=== PATIENT | male | born 1955 | race Caucasian/White ===

== ENCOUNTER 2024-12-08 05:59 | Inpatient (IN) ==
--- NOTE | 2024-11-03 10:59 | PAT Medication Instructions ---
Medication Instructions Date of Service November 03, 2024 Home Medications aspirin 81 mg tablet,delayed release 81 mg PO QAM atorvastatin 40 mg tablet 40 mg PO PM clopidogrel 75 mg tablet 75 mg PO QPM lisinopril 5 mg tablet 5 mg PO QAM MEDICATION INSTRUCTIONS: ASK your prescriber and surgeon aspirin 81 mg tablet,delayed release 81 mg PO QAM clopidogrel 75 mg tablet 75 mg PO QPM DO NOT take the morning of surgery lisinopril 5 mg tablet 5 mg PO QAM Take evening before surgery atorvastatin 40 mg tablet 40 mg PO PM Other Notes Remember: NOTHING TO EAT OR DRINK AFTER MIDNIGHT If you have any questions please call us at [phone] or [phone] or [phone] or [phone]
--- NOTE | 2024-11-06 13:34 | Anesthesiology Consultation ---
Date of Service November 06, 2024 Assessment & Plan (1) Encounter for pre-operative examination: - Case discussed in detail including abnormal pre-op EKG with Dr. Vasquez who advised patient is acceptable to proceed not requiring additional evaluation. - facial hair: Patient presented to [facility] with closely trimmed facial hair. He states that after discussion with Dr. Holloway he feels it is best to trim it prior to surgery and states he will trim it again before day of surgery. Case discussed in detail with Dr. Zelaya prior to knowing patient was now agreeable to shave, he advised he could be assigned to case. OR and surgeon's office made aware. Chart Review Chart Review: Acceptable Risk for Surgery and Patient seen in Pre Admission Testing Teaching & Discussion Pre-Anesthesia Teaching/Discussion Notes: Instructed NPO after midnight before surgery, except medications with 15 cc of water. Medication instructions provided according to the [facility] guidelines. History Surgery Operation Date: 12/09/24 10:20 Proposed Procedures p Right Transcarotid Artery Revascularization - Ruddy Holloway MD Height/Weight Height: 5 ft 9 in Weight: 93.9 kg Allergies Allergy/AdvReac Type Severity Reaction Status Date / Time No Known Allergies Allergy Verified 11/03/24 09:07 Medications Home Medications Medication Instructions Recorded Confirmed Last Taken aspirin 81 mg tablet,delayed 81 mg PO QAM 11/03/24 11/03/24 Unknown release atorvastatin 40 mg tablet 40 mg PO PM 11/03/24 11/03/24 Unknown clopidogrel 75 mg tablet 75 mg PO QPM 11/03/24 11/03/24 Unknown lisinopril 5 mg tablet 5 mg PO QAM 11/03/24 11/03/24 Unknown Past Medical History Medical History (Updated 11/06/24 @ 13:38 by Emily Kaplan PA-C) Carotid stenosis, right History of transesophageal echocardiography (AMALIA) 2016>while hospitalized in [place] 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 Exercise / Class Metabolic Activity II 4-5 Yardwork/Stairs/Walk up hill (denies chest discomfort or shortness of breath with one flight of stairs) Past Family History Family History Other No family history of adverse response to anesthesia Past Surgical History Surgical History H/O elbow surgery right History of cataract surgery right/left History of colonoscopy History of ERCP History of surgery on arm right>to treat tendonititis History of tooth extraction Past Anesthesia History No Hx of Anesthesia Complications and No Family Hx of Anesthesia Complications History of PONV No Hx of PONV and No Hx of Motion Sickness Social History Smoking Status: Former smoker Do You Dip or Chew Tobacco: No Smoking End Date: 2015 Hx Alcohol Use: Yes Alcohol type: beer alcohol intake frequency: a few times a week substance use type: does not use Review of Systems Patient denies chest pain, shortness of breath, dyspnea on exertion, snoring, witnessed apneas, reflux, fever, chills, cough, wheezing, or palpitations. Physical Exam Vital Signs Vitals BP 132/84 P 90 TEMP 98.2 SP02 96% on RA RESP 18 Physical Patient resting comfortably in chair in no acute distress, alert and oriented, responding appropriately throughout visit Full cervical extension range of motion without pain TMD 3.5 finger breadths Mallampati Score 2 Dentition: several chipped teeth, denies loose teeth, caps/crowns, implants or bridges Lungs: normal respiratory effort. Good air movement, clear throughout to auscultation, no adventitious breath sounds Cardiac: regular rate and rhythm, no murmurs noted Lab Results Anesthesia Preop Results Results Anesthesia Widget: WBC 8.73 K/ul (4.8-10.8) 11/06/24 Hgb 14.3 g/dl (14.0-18.0) 11/06/24 Hct 41.6 % (42.0-52.0) L 11/06/24 Plt 319 K/uL (130-400) 11/06/24 Na 138 mmol/L (136-145) 11/06/24 K 4.8 mmol/L (3.5-5.1) 11/06/24 Cl 104 mmol/L (98-107) 11/06/24 CO2 28 mmol/L (21-32) 11/06/24 BUN 17 mg/dl (6-23) 11/06/24 Creat 1.42 mg/dl (0.6-1.4) H 11/06/24 Glucose Level 91 mg/dl (70-99(Fasting)) 11/06/24 PT 10.0 Seconds (9.0-12.0) 11/06/24 PTT 26 Seconds (21-31) 11/06/24 INR 0.9 (0.9-1.1) 11/06/24 Blood Type A Positive 11/06/24 Antibody Screen NEGATIVE 11/06/24 Testing Electrocardiogram Date: 11/06/24 NSR, rate 83 bpm Inferior infarct, age undetermined Chest X-Ray Date: 11/06/24 No acute chest disease.
[2024-12-08] MEDS ORDERED: Nursing to Pharmacy Communication SCH (07:15)
[2024-12-08] MEDS: LR 15ML/HR IV SCH (07:30)
[2024-12-08] MEDS ORDERED: PROPOFOL IV EMULSION 10 MG/ML 20 ML VIAL IV ONE (07:31)
[2024-12-08] MEDS ORDERED: fentaNYL citrate PF 100 MCG/2 ML VIAL ONE ×2 (07:33→09:14)
[2024-12-08] MEDS ORDERED: MIDAZOLAM HCL 1 MG/ML 2ML VIAL ONE (07:34)
[2024-12-08] MEDS ORDERED: HEPARIN SOD (PORCINE) 1000 UNIT/ML ONE (07:36)
[2024-12-08] MEDS ORDERED: CISATRACURIUM BESYLATE IV SOLN 2 MG/ML 10 ML VIAL IV ONE (07:37)
--- NOTE | 2024-12-08 08:06 | History & Physical Report ---
Date of Service December 08, 2024 Assessment & Plan (1) Carotid stenosis, right: Plan: Patient for a right tcar. I have discussed the risks options and benefits of the procedure with the patient. The patient understands the risks options and benefits and agrees to t he procedure. History of Present Illness Chief Complaint: right carotid stenosis Primary Care Provider: Castillo Duckworth I had the pleasure of seeing Chandana today for evaluation of his carotid disease. As you know he is a 69-year-old gentleman who was found to have a carotid bruit and underwent ultrasound showing a severe right internal carotid artery stenosis. There also showed a moderate stenosis of the left internal carotid artery. He does have a history of TIA years ago involving the right side of his body. He had total recovery from that. He denies any claudication of the lower extremities. He was a smoker until he had his TIA follow-up approximately 8 years ago. Allergies Allergy/AdvReac Type Severity Reaction Status Date / Time No Known Allergies Allergy Verified 12/08/24 06:16 Home Medications Medication Instructions Recorded Confirmed Type aspirin 81 mg tablet,delayed 81 mg PO QAM 11/03/24 12/08/24 History release atorvastatin 40 mg tablet 40 mg PO PM 11/03/24 12/08/24 History clopidogrel 75 mg tablet 75 mg PO QPM 11/03/24 12/08/24 History lisinopril 5 mg tablet 5 mg PO QAM 11/03/24 12/08/24 History Past Med/Surg History Problem List Medical History History of transesophageal echocardiography (AMALIA) 2015>while hospitalized in [place] Hx TIA/stroke w/o resid 2016>no residual Carotid stenosis, right Hypertension controlled, stable per pt Hyperlipidemia Surgical History History of surgery on arm right>to treat tendonititis H/O elbow surgery right History of colonoscopy History of ERCP History of tooth extraction History of cataract surgery right/left Family History Other No family history of adverse response to anesthesia Social History Smoking Status: Former smoker Tobacco Type: Cigarettes Smoking End Date: 2015; Second Hand Exposure: No; Do You Dip or Chew Tobacco: No; Hx Alcohol Use: Yes Alcohol type: beer Preferred Language: Lithuanian Sales Attendant Required: No Beliefs That Will Affect Care: None Current Living Situation: Alone Feels Safe at Home: Yes Safety Concerns: Feels Safe At This Time Assistive Devices: Glasses Review of Systems All systems reviewed & are unremarkable except as noted in HPI & below Physical Exam Constitutional: WD/WN, vitals as above Respiratory: normal respiratory effort, lungs clear to auscultation Cardiovascular: RRR, no murmur, no edema Gastrointestinal (Abdomen): normal bowel sounds, soft, nontender, no hepatosplenomegaly Neurologic: CN's II-XI intact bilaterally and moves all extremities Psychiatric: A+Ox3, euthymic affect Results & Data Vital Signs (Past 12 Hours) Vital Signs Temp Pulse Resp BP Pulse Ox O2 Del Method 12/08/24 06:33 36.6 C 84 20 136/80 97 Room Air
[2024-12-08] MEDS: ceFAZolin 2000MG 2,000 MG/15 ML SYR IV ONE (08:50)
[2024-12-08] MEDS ORDERED: GLYCOPYRROLATE 0.2 MG/ML VIAL ONE (09:22)
[2024-12-08] MEDS ORDERED: ePHEDrine sulfate 50 MG/5 ML SYR ONE (09:22)
[2024-12-08] MEDS: ceFAZolin 2,000 MG/15 ML IV PUSH IV ONE (09:23)
[2024-12-08] MEDS ORDERED: PHENYLEPHRINE 100MCG/ML 5ML SYR ONE (09:27)
[2024-12-08] MEDS: VISIPAQUE IV ONE (09:34)
[2024-12-08] MEDS: ceFAZolin 330 MG/ML 1 GM VIAL ONE (09:35)
[2024-12-08] MEDS: THROMBIN FOR SOLN 20000 UNIT KIT ONE (09:41)
[2024-12-08] MEDS: GELATIN SPONGE SZ 100 ONE (09:41)
[2024-12-08] MEDS: SURGICEL ABSORB HEMOSTAT 2IN X 14IN TOP ONE (09:42)
[2024-12-08] MEDS ORDERED: PROTAMINE SULFATE 10 MG/ML 5 ML VIAL IV ONE (09:47)
--- NOTE | 2024-12-08 09:53 | Procedure Note ---
Angiogram Post Procedure Fluoroscopy Time (minutes): 3 Radiation (mGy): 31 Contrast: 9 Post Operative Report Pre & Post Diagnosis Operation Date: 12/08/24 08:00 Pre-Op Diagnosis: Stenosis of right carotid artery I identified the patient and participated in the time-out.: Yes Procedure Operation Date: 12/08/24 08:00 Actual Procedures p Right Transcarotid Artery Revascularization, Ultrasound Left Common Femoral Vein(Right) - Ruddy Holloway MD Surgeon Ruddy Holloway MD Structural Fitter Opal,PAC Estimated Blood Loss 20 Findings Consistent with Post-Op Diagnosis Specimens none Anesthesia Type General Complications none Disposition Accompanied Patient To Recovery: No Disposition: Recovery Room Indications This is a 69-year-old male who was found to have a right carotid bruit. Ultrasound CTA confirmed. 90% narrowing of his common carotid artery just before the bifurcation. Endarterectomy versus TCAR were discussed. He elected to go ahead with TCAR procedure. I have discussed the risks options and benefits of the procedure with the patient. The patient understands the risks options and benefits and agrees to the procedure. Description of Procedure The patient was taken to the operating room and placed in supine position. After general anesthesia was accomplished the groins and right side of the neck and chest were prepped and draped in a sterile manner. Timeout was performed and the patient was identified. A transverse incision was made just above the clavicle between the heads of the sternocleidomastoid. This is carried down to where the common carotid artery was identified. It was isolated. It was slung with umbilical tape. Next the U stitch was placed in the common carotid artery with a 5-0 Prolene suture. Patient was given 9000 heparin at that time. Ultrasound was then used to localize the left common femoral vein. The vein was patent and compressed easily. Under ultrasound guidance the left common femoral vein was punctured and the venous sheath was inserted. This was aspirated and flushed with heparinized saline. ACT at that time was 279. Using micropuncture technique the common carotid artery was punctured using a tunneling technique. The micro sheath was inserted to 3 cm. Injection was then done showing the bifu rcation. There was a significant lesion seen at the midportion and extending to the distal end of the common carotid artery. We then inserted the J-wire and left it short of the lesion. The micro sheath was removed and the TCAR sheath was inserted. Once it was in place it was sutured to the chest wall and the puncture site. We then flushed the tubing appropriately. The venous return to was clamped onto the TCAR sheath. It was flushed through and then attached to the venous inflow sheath in the left groin. Sheath was checked for flow. The saline cleared nicely. The common carotid artery was then clamped. Flow reversal was instituted.The flow reversal was again checked for flow and found to have good flow after clamping. We inserted a 6 x 25 balloon backloaded on the wire. The wire was passed through the lesion into the petrous portion of the internal carotid. The 6 balloon was then advanced to the lesion. Lesion was then predilated with a 6 mm balloon. Balloon was removed. We then inserted the 8 x30 stent. This was deployed across the lesion without difficulty. The catheter was removed. Appeared to be still a slight amount of narrowing at the midportion of the stent. We then inserted a 6 x 25 balloon and redilated this area. Widely patent stent was then noted on fluoroscopy. The carotid was allowed to go 2 minutes with flow reversal. Completion angiogram was done at that time which showed a widely patent carotid stent. At that point the common carotid artery was unclamped. The venous return tubing was clamped and removed from the TCAR sheath. The blood was allowed to flow back into the venous system. The TCAR sheath was then removed and the 5-0 Prolene suture securely tied. The patient was given 25 mg of protamine. Hemostasis was noted of the puncture site. An ACT was then drawn. The ACT was 134. The sheath was pulled from the groin and pressure was applied. Wound was irrigated with saline solution. Adequate hemostasis was obtained of the wound. Once this was noted the wound was closed in usual fashion using a 3-0 Vicryl suture for the subcutaneous layer and a 4-0 subcuticular Vicryl suture for the skin edges. Dermabond was used for dressing. The patient left the operation room in satisfactory condition and tolerated the procedure well. All needle and sponge counts were correct at the end of the procedure. Lea Higuera Pac assisted due to lack of resident availability and was necessary for positioning, draping, retraction, wound closure deep layers, subcutaneous tissue, and skin closure and was necessary for assisting with the case. I attest to the content of the Intraoperative Record and any orders documented therein. Any exceptions are noted below.
[2024-12-08] MEDS: BUPIVACAINE/EPINEPHRINE 0.5% MPF 1:200,000 30 ML VIAL ONE (09:55)
[2024-12-08] MEDS ORDERED: LABETALOL HCL IV 5 MG/ML 20ML IV PRN (10:21)
[2024-12-08] MEDS ORDERED: FLUMAZENIL 0.1 MG/1 ML 10 ML VIAL IV PRN (10:21)
[2024-12-08] MEDS ORDERED: ePHEDrine sulfate 50 MG/ML AMP IV PRN (10:21)
[2024-12-08] MEDS ORDERED: HYDROmorphone INJ 1 MG/ML SYRINGE IV PRN (10:21)
[2024-12-08] MEDS ORDERED: ONDANSETRON INJ 2 MG/ML 2 ML VIAL IV PRN (10:21)
[2024-12-08] MEDS ORDERED: NALOXONE HCL 0.4 MG/1 ML VIAL/CARP IV PRN (10:21)
[2024-12-08] MEDS ORDERED: ATROPINE SULFATE 0.1 MG/ML 10ML SYR IV PRN (10:21)
[2024-12-08] MEDS ORDERED: PROMETHAZINE HCL 6.25 MG in SODIUM CHLORIDE 0.9% 50 ML IV PRN (10:21)
[2024-12-08] MEDS ORDERED: fentaNYL citrate PF 100 MCG/2 ML VIAL IV PRN (10:21)
[2024-12-08] MEDS ORDERED: Concentrate Phenylephrine IV Infusion ONE (10:31)
[2024-12-08] MEDS: [UNRECOGNIZED DRUG - OTHER] IV PRN (10:49)
[2024-12-08] MEDS: STANDARD IV PRN (10:49)
--- NOTE | 2024-12-08 11:10 | Anesthesiology Progress Note ---
Date of Service December 08, 2024 Anesthesia Post Procedure Vital Signs Vital Signs: Temp Pulse Pulse Resp BP BP Pulse Ox 12/08/24 11:05 66 15 124/74 95 12/08/24 10:55 36.5 C 85 12 97/40 L 94 12/08/24 10:45 86 11 L 98/39 L 95 12/08/24 10:35 102 H 15 105/43 L 96 12/08/24 10:25 102 H 16 101/42 L 95 12/08/24 10:15 106 H 16 101/40 L 98 12/08/24 10:08 36.2 C L 109 H 18 121/48 L 97 12/08/24 06:33 36.6 C 84 20 136/80 97 O2 Del Method O2 Flow Rate 12/08/24 11:05 Room Air 12/08/24 10:55 Room Air 12/08/24 10:45 Room Air 12/08/24 10:35 Room Air 12/08/24 10:25 Room Air 12/08/24 10:15 Oxymask 6 12/08/24 10:08 Oxymask 6 12/08/24 06:33 Room Air Transfer of Care Handoff Completed per policy Notes Mental Status: alert / awake / arousable Patient Amnestic to Procedure: Yes Nausea / Vomiting: adequately controlled Pain: adequately controlled Airway Patency, RR, SpO2: stable & adequate BP & HR: stable & adequate Hydration State: stable & adequate Anesthetic Complications: no major complications apparent Notes: neurologically intact
[2024-12-08] MEDS ORDERED: oxyCODONE/ACETAMINOPHEN 5mg/325mg TAB PO PRN (12:02)
[2024-12-08] MEDS ORDERED: PHENYLEPHRINE/NSS 25 MG/250 ML BAG IV PRN (12:02)
[2024-12-08] MEDS ORDERED: STAT IV Infusion **Titration per Protocol STA (12:02)
[2024-12-08] MEDS: SODIUM CHLORIDE 0.9% 1,000 ML IV SCH (12:24)
--- NOTE | 2024-12-08 15:26 | Critical Care Consultation ---
Date of Consultation December 08, 2024 Assessment & Plan (1) History of transcarotid artery revascularization (TCAR): R internal carotid artery - 12/08/[address] Holloway (2) Hypotension: (3) Tachycardia: (4) Carotid artery stenosis: (5) Hyperlipidemia: chronic, (6) History of cigarette smokinpack-year history, has not smoked since TIA scare in 2016 (7) Hypertension: chronic, on lisinopril 5mg qAM Plan Reason for critical care consultation: postop day 0 s/p Right transcarotid artery revascularization (R TCAR) procedure, postop hypotension requiring phenylephrine Neuro - intact, unremarkable at this time, continue neuro checks q4 - encourage out of bed with assistance 3x daily Cardiovascular - periods of hypotension post- R TCAR procedure with concurrent tachycardia likely reflex - MAP currently 70s-80s with systolic 110s-120s and diastolic mainly 50s-70s, heart rate currently 80s-90s - currently on phenylephrine drip, continue to monitor closely for sustained MAP<60, in which case norepinephrine would be reasonable Respiratory - unremarkable at this time, currently satting mid-upper 90s on room air - encouraged to use incentive spirometer q2h GI - unremarkable at this time, appetite intact and tolerating solid meals without issue - CMP ordered in AM labs RENAL/LYTES - unremarkable at this time; pt is +~1.4L net fluids mostly via IVF, no significant edema - continue to monitor I/O closely - using bedside urinal at this time, encouraged to be out of bed with assistance 3x daily ENDO - unremarkable at this time, POC glucose 102 at 4:16pm, 12/08/24 - CMP in AM 12/09/24 HEME - no signs of significant bleeding at this time - CBC ordered in AM labs ID - unremarkable as this time; watching for signs and symptoms of infection - receiving IV ancef prophylactically LINES/IV ACCESS - L radial arterial line; L forearm IV access DVT PROPHYLAXIS - was given IV heparin for AM procedure; will try to get out of bed to use bathroom this evening; SCDs prn ordered in case patient does not get out of bed DISPO - ICU Supervising Physician Co-Signing Physician Notes Dr. Chen was resident physician during care of patient. I separately evaluated patient for elam portions of the history and the exam. I was present during the critical portion of medical decision making, and I discussed the case with the resident. I generally agree with the findings and plan. Wean phenylephrine as tolerated History of Present Illness Reason for Consultation: postprocedural hypotension requiring vasopressor support Attending Physician: Ruddy Holloway MD History of Present Illness Chandana is a 69yo male with history of b/l carotid stenosis postop day 0 s/p R TCAR procedure (previously 90% stenosis CESAR), moderate LICA stenosis, history of TIA in 2016, HTN, and hyperlipidemia. States he obtained a CESAR ultrasound with Dr. Holloway because of a CESAR bruit that was heard on a family practice (at the [place]) annual physical in Jul 2024. Denies having had any pain, dizziness, fainting, lightheadedness, headache, or neck pain before or after the finding. Patient notes he met with Dr. Holloway for a consultation in Oct 2024 and had to get an EKG and blood work before the actual procedure. States the TCAR procedure was rescheduled 4-5 times before he finally had it done this morning. Endorses he smoked cigarettes for 40 years with an average of about 1.5 packs per day = 60pack-year smoking history. Notes he quit smoking cigarettes in 2016 after his "mini stroke" scare, has not has the urge or interest to smoke cigarettes since then. Endorses alcohol use of 4-5 beers per week on average for the past 8-10 years. Denies rehab for alcohol or any alcohol-related incidents. Notes his home BP is typically 117-135 systolic and around 70 diastolic, so he endorses his current low BP readings are a bit abnormal. However, he denies any particular symptoms of lightheadedness, dizziness, nausea/vomiting, headache, neck pain, vision changes including double vision or blurry vision. Additionally denies any SOB, chest pain, abdominal pain. Endorses his appetite is good, was able to eat lunch without issue and is hungry for dinner. Notes he has good urine output and has been using his bedside urinal, last BM was this morning (12/08/24) with no concerns. Endorses understanding that he is in the ICU in case he needs vasopressor support in addition to his current phenylephrine drip. Allergies Allergy/AdvReac Type Severity Reaction Status Date / Time No Known Allergies Allergy Verified 12/08/24 06:16 Home Medications Medication Instructions Recorded Confirmed Type aspirin 81 mg tablet,delayed 81 mg PO QAM 11/03/24 12/08/24 History release atorvastatin 40 mg tablet 40 mg PO PM 11/03/24 12/08/24 History clopidogrel 75 mg tablet 75 mg PO QPM 11/03/24 12/08/24 History lisinopril 5 mg tablet 5 mg PO QAM 11/03/24 12/08/24 History oxycodone-acetaminophen 5 mg-325 1 tab PO Q6H PRN pain #10 tabs 12/09/24 Rx mg tablet (Percocet) Patient History Medical History History of transesophageal echocardiography (AMALIA) 2015>while hospitalized in [place] Hx TIA/stroke w/o resid 2015>no residual Carotid stenosis, right Hypertension controlled, stable per pt Hyperlipidemia Surgical History History of surgery on arm right>to treat tendonititis H/O elbow surgery right History of colonoscopy History of ERCP History of tooth extraction History of cataract surgery right/left Family History Other No family history of adverse response to anesthesia Social History Smoking Status: Former smoker Tobacco Type: Cigarettes Smoking End Date: 2015; Second Hand Exposure: No; Do You Dip or Chew Tobacco: No; Hx Alcohol Use: Yes Alcohol type: beer Preferred Language: Central African Educational Fundraising Director Required: No Beliefs That Will Affect Care: None Current Living Situation: Alone Feels Safe at Home: Yes Safety Concerns: Feels Safe At This Time Assistive Devices: Glasses Review of Systems Review of Systems: per HPI Physical Exam Physical Exam: Constitutional: A&Ox3, not in acute distress. Head: NC/AT Eyes: EOM intact, anicteric sclerae, PERRL b/l Neck: R inferior aspect- 5-6cm linear incision superior to R clavicle with 2-3cm area of ecchymosis extending primarily inferiorly from the medial/anterior half of incision - mild tenderness to light palpation of incision site and with moderate palpation of surrounding skin - appears to be healing well with normal scabbing with slightly raised edges, no active bleeding or purulence, no significant swelling or erythema Oropharynx: non-erythematous, no significant oral mucosal swelling, no sores or bleeding observed Cardiovascular: RRR, normal s1/s2, no murmurs/rubs/gallops - 2+ radial pulses b/l, 2+ carotid pulse s b/l, 1+ posterior tibial pulses b/l, 1+ dorsalis pedis pulses b/l Respiratory: clear to auscultation b/l, no wheezes/rales/rhonchi GI/Abdomen: +BS, abdomen mildly tense but nontender to palpation, slight bluish discoloration around inferior aspect of abdomen which is additionally nontender to palpation MSK: 5/5 strength in all extremities, no clubbing or edema noted. Slight pallor in b/l UE from mid hands to fingertips - arterial line in place in L radial art renny, IV line in place L distal ventral forearm Skin: b/l hands and feet slightly cooler to touch than more proximal areas of extremities, otherwise skin findings as noted above Neuro: no facial droop, speech intact, moves extremities on command, CN II-XII grossly intact Psych: good eye contact, feels "good", mood-affect congruence Results & Data Results & Data Vital Signs (Past 12 Hours) Vital Signs Temp Pulse Pulse Pulse Resp BP BP 12/08/24 15:00 81 24 12/08/24 14:36 99 H 15 12/08/24 14:06 116 H 20 12/08/24 14:00 89/58 L 12/08/24 13:57 108 H 16 12/08/24 13:42 92 H 19 12/08/24 13:12 128 H 19 12/08/24 13:01 90/61 L 12/08/24 12:45 72 13 12/08/24 12:15 77 18 12/08/24 12:09 12/08/24 12:06 82 16 12/08/24 12:00 36.5 C 12/08/24 12:00 86 14 115/55 L 12/08/24 11:30 76 16 12/08/24 11:15 67 16 122/77 12/08/24 11:05 66 15 124/74 12/08/24 10:55 36.5 C 85 12 97/40 L 12/08/24 10:45 86 11 L 98/39 L 12/08/24 10:35 102 H 15 105/43 L 12/08/24 10:25 102 H 16 101/42 L 12/08/24 10:15 106 H 16 101/40 L 12/08/24 10:08 36.2 C L 109 H 18 121/48 L 12/08/24 06:33 36.6 C 84 20 BP Pulse Ox O2 Del Method O2 Flow Rate 12/08/24 15:00 96 12/08/24 14:36 96 12/08/24 14:06 94 12/08/24 14:00 12/08/24 13:57 99 12/08/24 13:42 98 12/08/24 13:12 92 12/08/24 13:01 12/08/24 12:45 95 12/08/24 12:15 93 12/08/24 12:09 Room Air 12/08/24 12:06 95 12/08/24 12:00 12/08/24 12:00 94 Room Air 12/08/24 11:30 131/74 96 Room Air 12/08/24 11:15 95 Room Air 12/08/24 11:05 95 Room Air 12/08/24 10:55 94 Room Air 12/08/24 10:45 95 Room Air 12/08/24 10:35 96 Room Air 12/08/24 10:25 95 Room Air 12/08/24 10:15 98 Oxymask 6 12/08/24 10:08 97 Oxymask 6 12/08/24 06:33 136/80 97 Room Air Resident Activity Tracking Resident Involvement: Resident Care Provided Care Provided: Adult Hospital Medicine (2) Hypotension Hypotension type: postprocedural hypotension Qualified Code(s): I95.81 - Postprocedural hypotension (4) Carotid artery stenosis Laterality: bilateral Qualified Code(s): I65.23 - Occlusion and stenosis of bilateral carotid arteries (5) Hyperlipidemia Hyperlipidemia type: unspecified Qualified Code(s): E78.5 - Hyperlipidemia, unspecified (7) Hypertension Hypertension type: unspecified Qualified Code(s): I10 - Essential (primary) hypertension
[2024-12-08] MEDS: ceFAZolin 2000MG 2,000 MG/15 ML SYR IV SCH (16:17)
[2024-12-08] MEDS: CLOPIDOGREL BISULFATE 75 MG TAB PO SCH (20:19)
[2024-12-08] MEDS: ATORVASTATIN 40 MG TAB PO SCH (20:19)
[2024-12-09 04:50] LABS: Hematocrit (blood only) 31.9 % (42.0-52.0); Mean Corpuscular Hemoglobin 28.6 pg (25.0-34.0); Mean Corpuscular Hgb Conc 34.5 g/dL (32.0-36.0); Mean Corpuscular Volume 83.1 fL (80.0-100.0); Mean Platelet Volume 10.4 fL (9.4-12.4); Platelet Count 184 K/uL (130-400); RDW Coefficient of Variation 13.7 % (11.5-14.5); RDW Standard Deviation 41.2 fL (36.4-46.3); Red Blood Count 3.84 M/uL (4.70-6.10)
[2024-12-09 05:06] VITALS: RESP 18
[2024-12-09 05:06] LABS: Albumin Globulin Ratio 1.5 (0.9-2); Albumin Level 3.4 gm/dl (3.4-5.0); BUN Creatinine Ratio 11.6 (10-20); Bilirubin,Total 0.5 mg/dl (0.2-1.0); Calcium 8.7 mg/dl (8.6-10.3); Globulin 2.3 gm/dl (2.5-4.0); Potassium 3.8 mmol/L (3.5-5.1); Total Protein 5.7 gm/dl (6.0-8.3)
[2024-12-09] MEDS: lisinopril 5 MG TAB PO SCH (08:02)
--- NOTE | 2024-12-09 08:02 | Critical Care Progress Note ---
Date of Service December 09, 2024 Assessment & Plan (1) History of transcarotid artery revascularization (TCAR): Plan: R internal carotid artery - 12/08/[address] Holloway (2) Hypotension: (3) Tachycardia: (4) Carotid artery stenosis: (5) Hyperlipidemia: Plan: chronic, (6) History of cigarette smoking: Plan: 60pack-year history, has not smoked since TIA scare in 2016 (7) Hypertension: Plan: chronic, on lisinopril 5mg qAM Plan Reason for critical care consultation: postop day 1 s/p Right transcarotid artery revascularization (R TCAR) procedure, postop hypotension requiring phenylephrine Neuro - intact, unremarkable at this time Cardiovascular - hypotension post- R TCAR procedure with concurrent tachycardia likely reflex has since resolved - MAP currently upper 80s, no longer requires vasopressor support Respiratory - unremarkable at this time, currently satting 100% on room air GI - unremarkable at this time, appetite intact and tolerating solid meals without issue RENAL/LYTES - sodium 135 this am, asymptomatic, otherwise unremarkable at this time - net +1.6L as of this AM, no significant edema - using bedside urinal at this time ENDO - glucose 138 this AM, otherwise unremarkable, followup outpatient as pt is asymptomatic and plans to go home today HEME - no signs of significant bleeding at this time ID - unremarkable as this time; watching for signs and symptoms of infection at surgical wound site - receiving IV ancef prophylactically LINES/IV ACCESS - L radial arterial line; L forearm IV access DVT PROPHYLAXIS - out of bed DISPO - downgrade to tele Admission and Anticipated Discharge Date Admission Date: December 08, 2024 Supervising Physician Co-Signing Physician Notes Dr. Chen was resident physician during care of patient. I separately evaluated patient for elam portions of the history and the exam. I was present during the critical portion of medical decision making, and I discussed the case with the resident. I generally agree with the findings and plan. Discharge per vascular surgery today. Subjective Chandana was seen and evaluated in chair aside bed this AM. Endorses feeling well this AM with no concerns, symptoms, or acute events overnight. Endorses he has been up and out of bed since 5am, additionally had a regular bowel movement. Would like to go home today. Review of Systems Review of Systems: per HPI Physical Exam Physical Exam: Constitutional: A&Ox3, not in acute distress. Head: NC/AT Eyes: EOM intact, anicteric sclerae, PERRL b/l Neck: R inferior aspect- 5-6cm linear incision superior to R clavicle with 1-2cm area of improving ecchymosis (black and blue -> more red today) extending primarily inferiorly from the medial/anterior half of incision - mild tenderness to light palpation of incision site and with moderate palpati on of surrounding skin - appears to be continuing to heal well with normal scabbing with slightly raised edges, no active bleeding or purulence, no significant swelling or erythema Oropharynx: non-erythematous, no significant oral mucosal swelling, no sores or bleeding observed Cardiovascular: RRR, normal s1/s2, no murmurs/rubs/gallops - 2+ radial pulses b/l, 2+ carotid pulse s b/l, 1+ posterior tibial pulses b/l Respiratory: clear to auscultation b/l, no wheezes/rales/rhonchi GI/Abdomen: +BS, abdomen nontender to palpation, slight bluish discoloration around inferior aspect of abdomen which is additionally nontender to palpation MSK: 5/5 strength in all extremities, no clubbing or edema noted. Slight pallor in b/l UE from mid hands to fingertips Skin: b/l hands and feet slightly cooler to touch than more proximal areas of extremities, otherwise skin findings as noted above Neuro: no facial droop, speech intact, moves extremities on command, CN II-XII grossly intact Psych: good eye contact, feels "good", mood-affect congruence Results & Data Results & Data Vital Signs (Past 12 Hours) Vital Signs Temp Pulse Resp BP Pulse Ox 12/09/24 06:00 71 112/71 97 12/09/24 05:03 80 18 100/65 100 12/09/24 04:00 36.5 C 71 19 101/60 99 12/09/24 03:03 65 17 108/61 96 12/09/24 02:03 71 16 113/63 94 12/09/24 01:51 69 17 94 12/09/24 01:00 67 20 93 12/09/24 00:00 70 12/08/24 23:00 36.6 C 84 16 107/61 94 12/08/24 22:03 63 17 107/62 95 12/08/24 22:00 107/62 12/08/24 21:39 72 17 93 12/08/24 21:00 86 17 101/63 94 Resident Activity Tracking Resident Involvement: Resident Care Provided Care Provided: Adult Hospital Medicine (2) Hypotension Hypotension type: postprocedural hypotension Qualified Code(s): I95.81 - Postprocedural hypotension (4) Carotid artery stenosis Laterality: bilateral Qualified Code(s): I65.23 - Occlusion and stenosis of bilateral carotid arteries (5) Hyperlipidemia Hyperlipidemia type: unspecified Qualified Code(s): E78.5 - Hyperlipidemia, unspecified (7) Hypertension Hypertension type: unspecified Qualified Code(s): I10 - Essential (primary) hypertension
[2024-12-09] MEDS: ASPIRIN 81 MG ECTAB PO SCH (08:03)
[2024-12-09 08:31] VITALS: TEMP 98.2
--- NOTE | 2024-12-09 09:18 | Surgery Progress Note ---
Date of Service December 09, 2024 Assessment & Plan (1) Internal carotid artery stent present: Plan: Pt POD #1 after R TCAR. Doing well post op. Hypotension resolved. OK for d/c home today. Admission and Anticipated Discharge Date Admission Date: December 08, 2024 Subjective 69 yo m POD #1 after uncomplicated R TCAR, seen in f/u today. Pt denies any concerns, states incisional pain is minimal. Review of Systems Review of Systems: All systems reviewed & are unremarkable except as noted in HPI & below Physical Exam Constitutional: WD/WN, vitals as above cooperative; not in distress Neck: trachea midline R supraclavicular incision C/D/I, mild local edema/ecchymosis/tenderness Respiratory: normal respiratory effort, lungs clear to auscultation Auscultation: + diminished lung sounds Cardiovascular: Rate/Rhythm: regular rate and regular rhythm Gastrointestinal (Abdomen): Inspection/Auscultation: abdomen normal to inspection and normal bowel sounds Percussion/Palpation: abdomen soft; abdomen nontender Musculoskeletal: no cyanosis or clubbing, extremities motor strength 5/5 Skin: no rashes, warm and dry Neurologic: moves all extremities and awake; no focal motor deficits and not confused Psychiatric: A+Ox3, euthymic affect Results & Data Vital Signs (Past 12 Hours) Vital Signs Temp Pulse Pulse Resp BP BP BP 12/09/24 08:33 36.8 C 76 18 122/77 131/74 12/09/24 08:03 89 18 12/09/24 08:00 114/58 L 12/09/24 08:00 36.8 C 12/09/24 07:00 107/68 12/09/24 07:00 62 18 12/09/24 06:00 71 112/71 12/09/24 05:03 80 18 100/65 12/09/24 04:00 36.5 C 71 19 101/60 12/09/24 03:03 65 17 108/61 12/09/24 02:03 71 16 113/63 12/09/24 01:51 69 17 12/09/24 01:00 67 20 12/09/24 00:00 70 12/08/24 23:00 36.6 C 84 16 107/61 12/08/24 22:03 63 17 107/62 12/08/24 22:00 107/62 12/08/24 21:39 72 17 Pulse Ox O2 Del Method 12/09/24 08:33 98 12/09/24 08:03 98 Room Air 12/09/24 08:00 12/09/24 08:00 12/09/24 07:00 12/09/24 07:00 99 12/09/24 06:00 97 12/09/24 05:03 100 12/09/24 04:00 99 12/09/24 03:03 96 12/09/24 02:03 94 12/09/24 01:51 94 12/09/24 01:00 93 12/09/24 00:00 12/08/24 23:00 94 12/08/24 22:03 95 12/08/24 22:00 12/08/24 21:39 93
--- NOTE | 2024-12-09 09:19 | Discharge Summary ---
Date of Service December 09, 2024 Admission HPI Per Admitting Provider I had the pleasure of seeing Chandana today for evaluation of his carotid disease. As you know he is a 69-year-old gentleman who was found to have a carotid bruit and underwent ultrasound showing a severe right internal carotid artery stenosis. There also showed a moderate stenosis of the left internal carotid artery. He does have a history of TIA years ago involving the right side of his body. He had total recovery from that. He denies any claudication of the lower extremities. He was a smoker until he had his TIA follow-up approximately 8 years ago. Admission Exam Per Admitting Provider Constitutional: WD/WN, vitals as above Respiratory: normal respiratory effort, lungs clear to auscultation Cardiovascular: RRR, no murmur, no edema Gastrointestinal (Abdomen): normal bowel sounds, soft, nontender, no hepatosplenomegaly Neurologic: CN's II-XI intact bilaterally and moves all extremities Psychiatric: A+Ox3, euthymic affect Principal Diagnosis 1. s/p R TCAR 2. R ICA stenosis Discharge Exam Constitutional WD/WN, vitals as above cooperative; not in distress Neck trachea midline Respiratory normal respiratory effort, lungs clear to auscultation Auscultation: + diminished lung sounds Cardiovascular Rate/Rhythm: regular rate and regular rhythm Gastrointestinal (Abdomen) Inspection/Auscultation: abdomen normal to inspection and normal bowel sounds Percussion/Palpation: abdomen soft; abdomen nontender Musculoskeletal no cyanosis or clubbing, extremities motor strength 5/5 Skin no rashes, warm and dry Neurologic moves all extremities and awake; no focal motor deficits and not confused Psychiatric A+Ox3, euthymic affect Discharge Data Allergies Allergy/AdvReac Type Severity Reaction Status Date / Time No Known Allergies Allergy Verified 12/08/24 06:16 Consultations 12/08/24 12:02 Consult [facility] Director Routine Procedures Performed Operation Date: 12/08/24 08:00 Actual Procedures p Right Transcarotid Artery Revascularization, Ultrasound Left Common Femoral Vein(Right) - Ruddy Asencio MD Ordered Studies 12/08/24 07:16 EV angio carotid cerv RT Routine US EV guide vascular access Routine Hospital Course (1) Internal carotid artery stent present: Pt POD #1 after R TCAR. Doing well post op. Hypotension resolved. OK for d/c home today. Total Time Total Time Spent Total Time Spent (In Minutes): 0 Discharge Plan Discharge Items Patient Disposition: Home - Self-Care Reason For Visit: Right Carotid Artery Stenosis Discharge Diagnosis: 1. s/p R TCAR 2. R ICA stenosis Activity: Per Instructions section Non-emergency contact: Primary Care Provider and Surgeon Call non-emergency contact if: you have any medication questions, your symptoms worsen, your pain is not controlled, your pain is concerning for you, you have a fever, your wound has increased redness and your wound has increased drainage Follow-up/Referrals: Ruddy Asencio MD [Physician] - (Follow up with Dr Asencio or Lea Higuera PA-C, in 2 weeks. ) Castillo Duckworth PA-C [Primary Care Provider] - (Follow up with your PCP within 2 weeks) Diet: Heart Healthy Addtl Attending Provider Instructions: SPECIAL CARE INSTRUCTIONS: Diet: * You may return to previous diet. Medications: * Continue to take Aspirin, clopidogrel, and atorvastatin as directed. DO NOT STOP THESE MEDICATIONS WITHOUT SPEAKING TO DR ASENCIO'S OFFICE. Incision Care: * You may shower, but do not rub incision. You may let the warm soapy water run over it. Be sure to dry the incision well after bathing. * Do not shave directly over the incision until it is healed. * DO NOT IMMERSE THE INCISION IN A TUB/POOL/etc. UNTIL HEALED. Restrictions: * Do not drive if you are still taking any narcotic pain medication. * Do not lift anything heavier than a gallon of milk for one week after going home. Possible Complications: * Numbness - It is normal to have some numbness around the incision. Numbness can extend beyond the incision to areas of the neck, ear and face. The numbness is due to bruising of nerves during the surgery and will gradually improve over a period of months. * Hoarseness/Difficulty Speaking and Swallowing - The bruising of nerves in the neck can also cause a hoarse voice, difficulty speaking or swallowing. This may improve over time, HOWEVER, if it continues for more than a few days please contact our office ([phone]). * Excessive Swelling - There will be some swelling immediately after surgery which usually resolves within one week. If you notice that the swelling is getting worse, notify your surgeon ([phone]). * Drainage/Bleeding - If there is any drainage or bleeding, it should be a very small amount (less than a teaspoon per day). If you have excessive bleeding or drainage from the incision, call your surgeon ([phone]) right away. ACTIVATION OF EMERGENCY MEDICAL SYSTEM: Call 911, immediately, if you experience any of the following: Warning Signs and Symptoms of Stroke: * Sudden numbness or weakness of the face, arm or leg, especially on one side of the body * Sudden confusion, trouble speaking or understanding * Sudden trouble seeing in one or both eyes * Sudden trouble walking, dizziness, loss of balance or coordination * Sudden severe headache with no cause Do not delay calling 911 if you experience any warning signs or symptoms of a stroke. Delay in seeking medical attention may affect what treatments can be given to you. Risk Factors for Stroke: You can reduce your chances of stroke by working with your medical provider to a dopt a healthy lifestyle. Some specific ways to lower your chance of stroke are: * If you are a smoker, now is the time to stop smoking cigarettes * If you are diabetic, improve the control of your blood sugars * Avoid excessive amounts of alcohol * Control high blood pressure * Lose weight if you are overweight * Be sure to lead an active lifestyle * Eat a healthy diet low in salt, cholesterol and fat You should know about other risk factors for stroke that you are unable to control. These include: * Age 55 years or older * Male gender * Certain racial groups: , or / * Family History of Stroke, Mini stroke or Heart Attack * Sickle Cell Disease You will be receiving a call from the Vascular Surgery Nurse after you are discharged. FOLLOW UP VISIT: It is important for you to keep your follow up appointments with your medical provider. Keep any scheduled doctor appointments. Pending Studies at Discharge: No Stand-Alone Forms: [email or web address], Smoking Cessation Medications and DC Order Prescriptions: New oxycodone-acetaminophen [Percocet] 5-325 mg Tablet 1 tab PO Q6H PRN (Reason: pain) Qty: 10 0RF Continued atorvastatin 40 mg Tablet 40 mg PO PM clopidogrel 75 mg Tablet 75 mg PO QPM aspirin [Aspir-81] 81 mg Tablet,Delayed Release (Dr/Ec) 81 mg PO QAM lisinopril 5 mg Tablet 5 mg PO QAM Discharge Orders: Discharge Order (Routine); Ordered 12/09/24 Ordered By: Lea Higuera Admission Data Admit Date/Time: 12/08/24 09:40 Attending Provider: Ruddy Asencio Admit Provider: Ruddy Asencio Primary Care Provider: Castillo Duckworth Other Providers: Jim Garcia; Raz Conklin; Gabriel Julian; Santos Parnell; Jennifer Skelton; Boyd Horvath; Maxine Cifuentes; Argentina Menchaca; Dawson Tolentino; Amanda Bernard Other Interventions: Discharge Summary Assessment (RN) Last Done: 12/09/24 08:33
[2024-12-09 09:53] VITALS: BP 102/68; PULSE 89; O2SAT 100
--- NOTE | 2024-12-10 08:11 | Billing Data ---
Date of Service December 09, 2024 Coding Level of Care Code 16417 SUB INP/OBS CARE
== END 2024-12-09 10:30 | disposition home or self-care (01) | DRG 36 ==
LOC: ASU 05:59 → 1E 09:40
PROC: EV.TCAR (2024-12-08 08:00)
DX: R00.0 Tachycardia, unspecified; Z87.891 Personal history of nicotine dependence; E78.5 Hyperlipidemia, unspecified; I10 Essential (primary) hypertension; I95.81 Postprocedural hypotension; Z79.82 Long term (current) use of aspirin; I65.21 Occlusion and stenosis of right carotid artery; Z86.73 Personal history of transient ischemic attack (TIA), and cerebral infarction without residual deficits; Z79.02 Long term (current) use of antithrombotics/antiplatelets